=== PATIENT | female | born 1955 | race Caucasian/White ===

== ENCOUNTER 2017-01-10 22:44 | Observation (INO) ==
[2017-01-10 23:23] LABS: Basophils % 0.3 %; Eosinophils # 0.1 K/mcL (0.0-0.6); Eosinophils % 0.8 %; Hematocrit 40.5 % (35.3-44.9); Hemoglobin 13.1 g/dL (11.5-15.4); Immature Granulocytes % 0.2 % (0-4); Lymphocytes # 1.7 K/mcL (0.6-4.6); Lymphocytes % 18.9 %; Mean Corpuscular HGB Conc 32.3 g/dL (31.6-35.5); Mean Corpuscular Hemoglobin 29.4 pg (28.0-33.3); Mean Corpuscular Volume 90.8 fL (83.0-100.0); Mean Platelet Volume 9.2 fL (9.4-12.4); Monocytes # 0.6 K/mcL (0.0-1.3); Neutrophils # 6.7 K/mcL (1.6-8.9); Platelet Count 225 K/mcL (140-400); Red Blood Count 4.46 M/mcL (3.82-4.97); Red Cell Distribution Width 13.2 % (11.5-14.5); Segmented Neutrophils % 73.8 %
[2017-01-10 23:27] LABS: Bilirubin,Urine Small (Negative); Blood,Urine Negative (Negative); Clarity,Urine Clear (Clear); Color,Urine Dark Yellow (Yellow); Glucose,Urine (UA) Normal (Normal); Ketones,Urine Negative (Negative); Leukocyte Esterase,Urine Negative (Negative); Nitrite,Urine Negative (Negative); PH,Urine 6.5 pH Units (5.0-8.0); Protein,Urine 30 mg/dL (Neg-Trace); Specific Gravity,Urine > 1.030 (1.010-1.025); Urobilinogen,Urine Normal (Normal)
[2017-01-10 23:29] LABS: INR 1.2; Prothrombin Time 12.5 Seconds (9.4-12.1)
[2017-01-10 23:29] LABS: Bacteria,Urine None Seen per hpf (None-Few); Hyaline Casts,Urine None Seen per lpf (None-Few); RBC,Urine 0-3 per hpf (0-3); Squamous Epithelial Cell,Urine Many per lpf (None-Few)
[2017-01-10 23:31] LABS: Activated Partial Thrombo Time 51.1 Seconds (26.0-36.0)
[2017-01-10 23:39] LABS: Alanine Aminotransferase 11 Units/L (0-55); Albumin 3.5 g/dL (3.5-5.0); Alkaline Phosphatase 119 Units/L (38-126); Amylase 32 Units/L (25-125); Aspartate Amino Transferase 11 Units/L (5-34); BUN/Creatinine Ratio 13 (6-26); Bilirubin,Direct 0.2 mg/dL (0.0-0.5); Bilirubin,Indirect 0.2 mg/dL (0.0-1.2); Bilirubin,Total 0.4 mg/dL (0.2-1.2); Blood Urea Nitrogen 11 mg/dL (7-20); Calcium 8.8 mg/dL (8.6-10.8); Carbon Dioxide 23 mEq/L (19-29); Chloride 108 mEq/L (98-109); Globulin 3.4 g/dL (2.4-3.5); Glucose 103 mg/dL (70-99); Lipase 15 Units/L (8-78); Osmolality,Calculated 292 (280-300); Potassium 4.3 mEq/L (3.5-4.5); Sodium 141 mEq/L (136-145); Total Protein 6.9 g/dL (6.0-8.3); eGFR For African Americans > 60 (> 60); eGFR For Non-African Americans > 60 (> 60)
--- NOTE | 2017-01-10 23:46 | Emergency Department Note ---
Disposition Clinical Impression: Kidney stone, Common bile duct dilatation Disposition: Admitted As Inpatient Condition: Good [facility] Care Provider[facility] - Forms: Work/School Release, ED Satisfaction Letter Time of Disposition: 02:00 Abdominal Pain HPI - General Chief Complaint: ED Abdominal Pain Stated Complaint: abd pain Time Seen by Provider: 01/10/17 22:46 Source: patient, family, EMS Mode of arrival: ambulatory Limitations: no limitations Nursing Notes Reviewed: Yes Vital Signs Reviewed: Yes - History of Present Illness HPI Narrative: 62 year old female presnts to the eD via EMS from the [place] and states that she has increased abdominal pain in the RUQ and LUQ, she no longer has a galbladder or appendix and states that she has had increased nausea without vomitting or fevers. PAtient states that this is a first time feeling. she denies any other cardiac history. Patient denies any fevers, chest pain, or shortness of breath. Patients states that her abdominal pain is described as sharp and tender to palpations. She states that she has a history of pancreatic cysts but has had them for years and has not had any bleeding episodes in the past. Pain Scale: 9 - Related Data Allergies Allergy/AdvReac Type Severity Reaction Status Date / Time doxycycline Allergy Vomiting Verified 10/07/15 19:35 Penicillins Allergy Vomiting Verified 10/07/15 19:35 Constitutional: Denies: fever, chills, weakness, weight change Eyes: Denies: eye pain, eye discharge, vision change ENT ED: Denies: ear pain, throat pain, dental pain, hearing loss, epistaxis, congestion, dysphagia Cardiovascular: Denies: chest pain, palpitations, dyspnea on exertion, edema, syncope Respiratory: Denies: cough, dyspnea, wheezes, hemoptysis, stridor Gastrointestinal: Reports: abdominal pain, nausea. Denies: vomiting, diarrhea, constipation, hematemesis, melena, hematochezia Genitourinary: Denies: dysuria, frequency, hematuria, discharge Musculoskeletal: Denies: back pain, neck pain, arthralgia, myalgia Integumentary: Denies: rash, abrasion, lesions Neurological: Denies: headache, weakness, numbness, paresthesias, confusion, abnormal gait, vertigo Psychiatric: Denies: anxiety, depression, suicidal thoughts, homicidal thoughts , auditory hallucinations, visual hallucinations Endocrine: Denies: fatigue Hematological/Lymphatic: Denies: easy bleeding, easy bruising Allergic/Immunologic: Denies: facial swelling, urticaria Abdominal Pain PMH - Past Medical History Medical history: Reports: atrial fibrillation, hypertension Female Surgical History: Reports: herniorrhaphy, hysterectomy, knee replacement , other Psychiatric history: Reports: depression - Social History Smoking status: Never smoker Alcohol use: Reports: none Drug use: Reports: none Physical Exam - General Limitations: no limitations General appearance: alert, in no apparent distress - Head Head exam: atraumatic, normocephalic, normal inspection - Eye Eye exam: Present: normal appearance, PERRL, EOMI - Expanded Eye Exam Pupils: Left: reactive - ENT ENT exam: normal exam, normal oropharynx, mucous membranes moist - Expanded ENT Exam External ear exam: Present: normal external inspection Mouth exam: Present: normal external inspection Teeth exam: Present: normal inspection Throat exam: Present: normal inspection - Neck Neck exam: Present: normal inspection, full ROM, trachea midline - Chest Chest inspection: Present: normal inspection, symmetric chest wall rise - Respiratory Respiratory exam: Present: normal lung sounds bilaterally - Cardiovascular Cardiovascular exam: Present: regular rate, normal rhythm, normal heart sounds - Abdominal Exam Abdominal exam: Present: soft, tenderness. Absent: Non-Tender, distention, guarding, rebound, rigidity Abdominal tenderness: Present: RUQ, moderate - Extremities Exam Extremities exam: Present: normal inspection, full ROM. Absent: tenderness, pedal edema - Expanded Upper Extremity Exam Shoulder exam: Present: normal inspection, full ROM Arm exam: Present: normal inspection, full ROM Elbow exam: Present: normal inspection, full ROM Forearm/Wrist exam: Present: normal inspection, full ROM Hand exam: Present: normal inspection, full ROM Vascular exam: Normal: capillary refill, radial pulse - Expanded Lower Extremity Exam Hip/Pelvis exam: Present: normal inspection, full ROM Upper leg exam: Present: normal inspection, full ROM Knee exam: Present: normal inspection, full ROM Lower leg exam: Present: normal inspection, full ROM Ankle exam: Present: normal inspection, full ROM Foot/toe exam: Present: normal inspection, full ROM Neurovascular/Tendon exam: Absent: motor deficit, sensory deficit, tendon deficit - Back Exam Back exam: Present: normal inspection, full ROM. Absent: tenderness - Neurological Exam Neurological exam: Present: alert, oriented X3 - Expanded Neurological Exam Patient oriented to: Present: person, place, time Coma Scale Eye Opening: Spontaneous Coma Scale Motor Response: Obeys Commands Coma Scale Verbal Response: Oriented Coma Scale Total: 15 - Psychiatric Psychiatric exam: Present: normal affect, normal mood - Skin Skin exam: Present: warm, dry, intact, normal color Course Course Narrative: we will do an abdominal pain workup and mrphine/zofran for symptomatic relief with CT scan. Vital Signs Temperature 100.9 F H 01/10/17 22:47 Pulse Rate 57 01/10/17 22:47 Respiratory Rate 18 01/10/17 22:47 Blood Pressure 148/115 01/10/17 22:47 O2 Sat by Pulse Oximetry 95 01/10/17 22:47 Temperature 100.9 F H 01/10/17 22:47 Pulse Rate 87 01/11/17 00:08 Respiratory Rate 18 01/11/17 00:08 Blood Pressure 138/63 01/11/17 00:08 O2 Sat by Pulse Oximetry 94 01/11/17 00:08 Oxygen Delivery Oxygen Delivery Room Air Abdominal Pain - Lab Data Result diagrams: 01/10/17 23:17 01/10/17 23:17 Lab Results 01/10/17 01/10/17 01/10/17 Range/Units 23:00 23:17 23:17 WBC 9.1 (4.3-11.1) K/mcL RBC 4.46 (3.82-4.97) M/mcL Hgb 13.1 (11.5-15.4) g/dL Hct 40.5 (35.3-44.9) % MCV 90.8 (83.0-100.0) fL MCH 29.4 (28.0-33.3) pg MCHC 32.3 (31.6-35.5) g/dL RDW 13.2 (11.5-14.5) % Plt Count 225 (140-400) K/mcL MPV 9.2 L (9.4-12.4) fL Immature Gran % 0.2 (0-4) % Seg Neutrophils % 73.8 % Lymphocytes % 18.9 % Monocytes % 6.0 % Eosinophils % 0.8 % Basophils % 0.3 % Neutrophils # 6.7 (1.6-8.9) K/mcL Lymphocytes # 1.7 (0.6-4.6) K/mcL Monocytes # 0.6 (0.0-1.3) K/mcL Eosinophils # 0.1 (0.0-0.6) K/mcL Basophils # 0.0 (0.0-0.2) K/mcL PT 12.5 H (9.4-12.1) Seconds INR 1.2 APTT 51.1 H (26.0-36.0) Seconds Sodium (136-145) mEq/L Potassium (3.5-4.5) mEq/L Chloride (98-109) mEq/L Carbon Dioxide (19-29) mEq/L BUN (7-20) mg/dL Creatinine (0.57-1.11) mg/dL Est GFR ( Amer) (> 60) Est GFR (Non-Af Amer) (> 60) BUN/Creatinine Ratio (6-26) Glucose (70-99) mg/dL Calculated Osmolality (280-300) Lactic Acid (0.5-2.2) mmol/L Calcium (8.6-10.8) mg/dL Total Bilirubin (0.2-1.2) mg/dL Direct Bilirubin (0.0-0.5) mg/dL Indirect Bilirubin (0.0-1.2) mg/dL AST (5-34) Units/L ALT (0-55) Units/L Alkaline Phosphatase (38-126) Units/L Troponin I (0-0.03) ng/mL Serum Total Protein (6.0-8.3) g/dL Albumin (3.5-5.0) g/dL Globulin (2.4-3.5) g/dL Albumin/Globulin Ratio (1.1-2.2) Amylase (25-125) Units/L Lipase (8-78) Units/L Urine Color Dark Yellow (Yellow) Urine Clarity Clear (Clear) Urine pH 6.5 (5.0-8.0) pH Units Ur Specific Bates > 1.030 H (1.010-1.025) Urine Protein 30 H (Neg-Trace) mg/dL Urine Glucose (UA) Normal (Normal) mg/dL Urine Ketones Negative (Negative) mg/dL Urine Blood Negative (Negative) Urine Nitrite Negative (Negative) Urine Bilirubin Small H (Negative) Urine Urobilinogen Normal (Normal) mg/dL Ur Leukocyte Esterase Negative (Negative) Urine Microscopic RBC 0-3 (0-3) per hpf Urine Microscopic WBC 3-5 H (0-3) per hpf Ur Squamous Epith Cells Many H (None-Few) per lpf Urine Bacteria None Seen (None-Few) per hpf Hyaline Casts None Seen (None-Few) per lpf Ur Culture Indicated? NO (NO) 01/10/17 01/10/17 01/10/17 Range/Units 23:17 23:17 23:17 WBC (4.3-11.1) K/mcL RBC (3.82-4.97) M/mcL Hgb (11.5-15.4) g/dL Hct (35.3-44.9) % MCV (83.0-100.0) fL MCH (28.0-33.3) pg MCHC (31.6-35.5) g/dL RDW (11.5-14.5) % Plt Count (140-400) K/mcL MPV (9.4-12.4) fL Immature Gran % (0-4) % Seg Neutrophils % % Lymphocytes % % Monocytes % % Eosinophils % % Basophils % % Neutrophils # (1.6-8.9) K/mcL Lymphocytes # (0.6-4.6) K/mcL Monocytes # (0.0-1.3) K/mcL Eosinophils # (0.0-0.6) K/mcL Basophils # (0.0-0.2) K/mcL PT (9.4-12.1) Seconds INR APTT (26.0-36.0) Seconds Sodium 141 (136-145) mEq/L Potassium 4.3 (3.5-4.5) mEq/L Chloride 108 (98-109) mEq/L Carbon Dioxide 23 (19-29) mEq/L BUN 11 (7-20) mg/dL Creatinine 0.85 (0.57-1.11) mg/dL Est GFR ( Amer) > 60 (> 60) Est GFR (Non-Af Amer) > 60 (> 60) BUN/Creatinine Ratio 13 (6-26) Glucose 103 H (70-99) mg/dL Calculated Osmolality 292 (280-300) Lactic Acid 1.0 (0.5-2.2) mmol/L Calcium 8.8 (8.6-10.8) mg/dL Total Bilirubin 0.4 (0.2-1.2) mg/dL Direct Bilirubin 0.2 (0.0-0.5) mg/dL Indirect Bilirubin 0.2 (0.0-1.2) mg/dL AST 11 (5-34) Units/L ALT 11 (0-55) Units/L Alkaline Phosphatase 119 (38-126) Units/L Troponin I 0.00 (0-0.03) ng/mL Serum Total Protein 6.9 (6.0-8.3) g/dL Albumin 3.5 (3.5-5.0) g/dL Globulin 3.4 (2.4-3.5) g/dL Albumin/Globulin Ratio 1.0 L (1.1-2.2) Amylase 32 (25-125) Units/L Lipase 15 (8-78) Units/L Urine Color (Yellow) Urine Clarity (Clear) Urine pH (5.0-8.0) pH Units Ur Specific Bates (1.010-1.025) Urine Protein (Neg-Trace) mg/dL Urine Glucose (UA) (Normal) mg/dL Urine Ketones (Negative) mg/dL Urine Blood (Negative) Urine Nitrite (Negative) Urine Bilirubin (Negative) Urine Urobilinogen (Normal) mg/dL Ur Leukocyte Esterase (Negative) Urine Microscopic RBC (0-3) per hpf Urine Microscopic WBC (0-3) per hpf Ur Squamous Epith Cells (None-Few) per lpf Urine Bacteria (None-Few) per hpf Hyaline Casts (None-Few) per lpf Ur Culture Indicated? (NO) - EKG Data EKG attestation: Yes I reviewed and interpreted this EKG. EKG results narrative: NSR with rate of 75. frequent PVCs. NO STEMI. normla intervals. no old ekg. 4181
[2017-01-10] MEDS ORDERED: *HR* Morphine 2 MG/ML SYRINGE IVP ONE (23:49)
[2017-01-10] MEDS ORDERED: Ondansetron 4 MG/2 ML VIAL IVP ONE (23:49)
[2017-01-11] MEDS ORDERED: Ondansetron 4 MG/2 ML VIAL IVP ONE (01:04)
[2017-01-11] MEDS ORDERED: *HR* Morphine 2 MG/ML SYRINGE IVP ONE (01:04)
[2017-01-11] MEDS ORDERED: Naloxone 0.4 MG/ML INJ IVP PRN ×2 (02:39→20:41)
[2017-01-11] MEDS ORDERED: Ondansetron 4 MG/2 ML VIAL IVP PRN ×2 (02:39→20:41)
[2017-01-11] MEDS ORDERED: Acetaminophen 325 MG TABLET PO PRN ×2 (02:39→20:41)
--- NOTE | 2017-01-11 02:49 | Internal Med History&Physical ---
<Ashkan Alvarez - Last Filed: 01/11/17 03:53> Date of Encounter: 01/11/17 Time of Encounter: 02:48 Assessment and Plan (1) Kidney stone Current visit: Yes Status: Acute presented with cc of LLQ pain with nausea reported right groin pain hx of kidney stones CT abdomen pelvis shows 6mm right ureteral calculi at R. UPJ with minimal r. hydronephrosis Temperature of 100.9 (reports temperature of 100.8 at home) UA negative for infection denies hematuria, dysuria plan: nausea, pain control IVF urology consult, if patient cannot pass stone may need invasive intervention. (2) Pancreatic cyst Current visit: Yes Status: Chronic Ct abdomen pelvis reports pancreatic cyst that has been stable since 2009 patient had recent EUS done at [facility] and mentioned possibility of biospy of cyst. Denies weight loss denies hx of cancer in family Bilirubin WNL s/p cholecystectomy and CT abdomen pelvis also reports dialation of hepatic and pancreatic bile duct. plan: as cyst morphology is stable with no evidence of mass will continue to monitor will request record of EUS at [facility]. (3) Atrial fibrillation Current visit: Yes Status: Acute hx of afib rate controlled EKG shows afib with no st changes plan: continue eliquis and metoprolol Qualifiers: Atrial fibrillation type: chronic Qualified Code(s): I48.2 - Chronic atrial fibrillation (4) Depression Current visit: Yes Status: Acute hx of depression controlled continue home medication Qualifiers: Depression Type: unspecified Qualified Code(s): F32.9 - Major depressive disorder, single episode, unspecified (5) Hypertension Current visit: Yes Status: Acute hx of HTN controlled plan: continue home lisinopril Qualifiers: Hypertension type: essential hypertension Qualified Code(s): I10 - Essential (primary) hypertension (6) DVT prophylaxis Current visit: Yes Status: Acute on eliquis for afib Internal Medicine - H&P: HPI Chief complaint: abdominal pain Admitted [facility] Plans for Post Hospital Care: Home History of present illness: Ms. Dowling is a 62 year old female presents with RLQ pain which started yesterday morning . Patient had eaten cold cereal for breakfast and after a couple hours started having colicky "strangulating" pain localized to RLQ radiating to LLQ associated with nausea. Patient has not eaten since yeterday morning but denies food making her symptoms worse. She also reported right groin pain and right anterior thigh numbness which has now resolved. Denies exacerbating and relieving factors. Denies vomiting, diarrhea, melena, hematochezia, sick contacts, travel. Reproted a temperature of 100.8 at home. S/ p cholecystectomy. Reports previous hx of kidney stones but states this feels different. Denies dysuria, hematuria, frequency and urgency. Denies chills, sob , chest pain, palpitations, rash, open wounds or sores. Last BM was formed and was yesterday morning before her symptoms started. Last colonoscopy was 2012 at [facility] and she reports findings of multiple polyps and was susspsoe to follow up in one year for a repeat but she never did. Denies weight loss. Denies any hx of cancer in family. Furthermore, 3 weeks ago patient had MRI and CT scan at [place] for evaluation of nerve impingement and states "they found a spot on the pancreas". She had EUS at [facility] which found pancreatic cysts and mentions they had plans of biopsying the cysts. According to Ct scan taken at [place] today the cyst have been stable since 2009. Past Med Surg Social Fam HX - Past Medical History Medical history: atrial fibrillation, hypertension Psychiatric history: depression - Social History Smoking Status: Never smoker Smokeless Tobacco Status: No Alcohol use: none Drug use: none Internal Medicine - H&P: Meds Apixaban [Eliquis] 5 mg PO BID 01/11/17 [History] BuPROPion XL (24 HR) [Wellbutrin XL] 450 mg PO DAILY 01/11/17 [History] Calcium Carbonate [Calcium] 500 mg PO BID 01/11/17 [History] Cefdinir [Omnicef] 300 mg PO BID 01/11/17 [History] Escitalopram Oxalate 20 mg PO DAILY 01/11/17 [History] Lisinopril [Zestril] 20 mg PO DAILY 01/11/17 [History] Metoprolol XL (24 HR) Succ [Toprol XL] 12.5 mg PO BID 01/11/17 [History] Morphine Immed Rel [Morphine Sulfate] 30 mg PO QID PRN 01/11/17 [History] Morphine Sulfate [Morphine Sulfate ER] 90 mg PO HS 01/11/17 [History] Multivitamin [Multivitamins] 1 tab PO DAILY 01/11/17 [History] Sennosides/Docusate Sodium [Stool Softener Tablet] 2 - 4 each PO DAILY PRN 01/11 [History] traZODone [TraZODone] 100 mg PO HS 01/11/17 [History] 3 Allergy/AdvReac Type Severity Reaction Status Date / Time doxycycline Allergy Vomiting Verified 10/07/15 19:35 Penicillins Allergy Vomiting Verified 10/07/15 19:35 All Systems PM: A 10-system review of systems was performed and is negative for pertinent findings except as documented above in the HPI. Review of systems: Constitutional: reports fevers, denies chills HEENT: Denies headache, vision changes, neck pain, sore throat, rhinorrhea Heart: Denies chest pain palpitations Lungs: Denies shortness of breath cough Abdomen: reprots abdominal pain, nausea. Denies diarrhea, melena, hematochezia Back: Denies back pain Kidney: Denies dysuria, hematuria Skin: warm and dry Extremities: reports LE swelling Neuro: Denies numbness, and tingling - Constitutional Vitals: Temp Pulse Resp BP Pulse Ox 100.9 F H 87 18 138/63 94 01/10/17 22:47 01/11/17 00:08 01/11/17 00:08 01/11/17 00:08 01/11/17 00:08 - Other Additional findings: General: Pleasant without distress HEENT: Head atraumatic, normocephalic, EOMI, PERRLA, neck nontender to palpation , absent lymphadenopathy, Moist Mucous Membranes, Heart: irregularly irregular rhythm Lungs: Clear to auscultation bilaterally Abdomen: Soft tenderness to palpation of LUQ and LLQ, + BS, absent guarding, absent organomegaly, absent rigidity Skin: warm and dry Extremities: 1+ pedal edema Neuro: Cranial nerves II through XII intact, UE and LE sensation equal bilaterally, UE and LE strength 5/5, alert oriented 3, Vascular: Pedal and radial pulses 2 out of 4 Internal Med - H&P Results - Labs CBC & Chem 7: 01/10/17 23:17 01/10/17 23:17 - Impressions ITS Impressions Abdomen/Pelvis CT 01/11/17 23:40 IMPRESSION: 1. Right ureteral calculus at the right ureteropelvic junction measuring just over 6 mm, but with only minimal right-sided hydronephrosis. 2. Right-sided nephrolithiasis. 3. Intra and extrahepatic biliary dilation status post cholecystectomy, with the common duct measuring up to 1.4 cm, which is increased when compared to the previous exam. This can be a normal finding after gallbladder removal, but correlate with any clinical or laboratory evidence of biliary obstruction. D/ / Jalen Whipple MD / Jalen Whipple MD Interpreting Provider: Jalen Whipple MD <Robert Arteaga - Last Filed: 01/11/17 05:26> Date of Encounter: 01/11/17 Internal Medicine - H&P: HPI History of present illness: Ms. Dowling is a 62 year old female All Systems PM: A 10-system review of systems was performed and is negative for pertinent findings except as documented above in the HPI. - Constitutional Vitals: Temp Pulse Resp BP Pulse Ox 100.0 F H 87 18 131/48 95 01/11/17 03:20 01/11/17 00:08 01/11/17 03:20 01/11/17 03:20 01/11/17 03:20 Internal Med - H&P Results - Labs CBC & Chem 7: 01/10/17 23:17 01/10/17 23:17 - Impressions ITS Impressions Abdomen/Pelvis CT 01/11/17 23:40 IMPRESSION: 1. Right ureteral calculus at the right ureteropelvic junction measuring just over 6 mm, but with only minimal right-sided hydronephrosis. 2. Right-sided nephrolithiasis. 3. Intra and extrahepatic biliary dilation status post cholecystectomy, with the common duct measuring up to 1.4 cm, which is increased when compared to the previous exam. This can be a normal finding after gallbladder removal, but correlate with any clinical or laboratory evidence of biliary obstruction. D/ / Jalen Whipple MD / Jalen Whipple MD Interpreting Provider: Jalen Whipple MD - Attending Attestation I examined this patient and my medical decision-making was reviewed with the Resident Physician, Dr. Ashkan Alvarez. I agree with the documented findings, disposition and treatment plan as described except to the extent set forth below. I have independently obtained history and examined the patient and my findings are summarized below: Patient presents with right lower quadrant pain radiating to the right groin. She denies urinary symptoms. On exam she is in no acute distress; heart exam reveals irregularly irregular S1 -S2, abdomen is tender to palpation to the right lower quadrant. Urinalysis shows few wbc's but no leukocytes or nitrate. Assessment Imaging studies: CT scan reviewed by myself shows a 6 mm stone at the right UPJ. Assessment: Right ureteral calculus with UPJ obstruction and possible UTI given ureteral stone, right lower quadrant tenderness and fever. Plan: Medical expulsion therapy with IV fluids, Flomax, IV Dilaudid and Zofran. Levaquin for possible UTI.
[2017-01-11] MEDS: *HR* Morphine 2 MG/ML SYRINGE IVP PRN ×3 (03:49→13:22)
[2017-01-11] MEDS ORDERED: 0.9 % Sodium Chloride 1,000 ML IVC SCH ×2 (04:00→05:24)
[2017-01-11] MEDS: *HR* HYDROcodone/Acet 5/325 mg TABLET PO PRN ×2 (05:16→11:12)
--- NOTE | 2017-01-11 06:14 | Urology - Consult Note ---
Date of Encounter: 01/11/17 Time of Encounter: 06:13 - Assessment and Plan (1) Ureteral stone with hydronephrosis Current Visit: Yes Status: Acute Assessment and plan: Patient has a proximal ureteral stone which is likely the cause of her significant flank discomfort. Although her labs or urine are not concerning for infection her fevers may indicate underlying infection. I do not feel it is safe to attempt an in situ ureteroscopic stone extraction. We'll plan for cystoscopy and ureteral stent placement today. She will require a staged stone extraction or lithotripsy as an outpatient. We discussed the risks of the procedure which includes injury to her urinary tract, stricture, perforation, worsening infection. Urology CN:HPI Consult date: 01/11/17 Reason for consult Urology: Hydronephrosis History of present illness: pt admitted overnight with a 6 mm proximal stone and hydronephrosis. fever near 101. severe flank pain. Admitted to the hospitalist service. Past Med Surg Social Fam HX - Past Medical History Medical history: atrial fibrillation, hypertension Psychiatric history: depression - Past Surgical History Surgical History: appendectomy, cholecystectomy, hysterectomy - Social History Smoking Status: Never smoker Smokeless Tobacco Status: No Alcohol use: none Drug use: none - Family History Mother Living Status: Age at : 70 Hx Family Respiratory Disorders: Yes (copd) Father Living Status: Still Living Hx Family Cardiac Disorders: Yes Hx Family Endocrine Disorder: Yes (diabetes) Sister Hx Family Cardiac Disorders: Yes (afib) Hx Family Cancer: Yes (skin cancer) Medications and Allergies Apixaban [Eliquis] 5 mg PO BID 01/11/17 [History] BuPROPion XL (24 HR) [Wellbutrin XL] 450 mg PO DAILY 01/11/17 [History] Calcium Carbonate [Calcium] 500 mg PO BID 01/11/17 [History] Cefdinir [Omnicef] 300 mg PO BID 01/11/17 [History] Escitalopram Oxalate 20 mg PO DAILY 01/11/17 [History] Lisinopril [Zestril] 20 mg PO DAILY 01/11/17 [History] Metoprolol XL (24 HR) Succ [Toprol XL] 12.5 mg PO BID 01/11/17 [History] Morphine Immed Rel [Morphine Sulfate] 30 mg PO QID PRN 01/11/17 [History] Morphine Sulfate [Morphine Sulfate ER] 90 mg PO HS 01/11/17 [History] Multivitamin [Multivitamins] 1 tab PO DAILY 01/11/17 [History] Sennosides/Docusate Sodium [Stool Softener Tablet] 2 - 4 each PO DAILY PRN 01/11 [History] traZODone [TraZODone] 100 mg PO HS 01/11/17 [History] 3 Allergy/AdvReac Type Severity Reaction Status Date / Time doxycycline Allergy Vomiting Verified 10/07/15 19:35 Penicillins Allergy Vomiting Verified 10/07/15 19:35 Review of Systems - Constitutional chills, fever(s), malaise - EENT Nose, mouth and throat: no dizziness - Cardiovascular no chest pain - Respiratory no cough - Gastrointestinal abdominal pain, nausea - Genitourinary Genitourinary: flank pain - Musculoskeletal back pain - Integumentary no erythema - Neurological no confusion - Psychiatric no anxiety - Hematologic/Lymphatic no easy bleeding - Allergic/Immunologic no throat swelling Exam Initial Vital Signs Temp Pulse Resp BP Pulse Ox 100.9 F H 57 18 148/115 95 01/10/17 22:47 01/10/17 22:47 01/10/17 22:47 01/10/17 22:47 01/10/17 22:47 - General physical appearance Present: no distress, moderate pain - Eyes Present: PERRL - ENT Present: normal nares - Neck Present: no masses - Respiratory Present: normal respiratory effort - Cardiovascular Cardiovascular exam IM: RRR - Abdomen Abdomen: Present: soft - Integumentary Present: no rash - Neurologic Present: normal coordination. Absent: disoriented, confused - Additional Findings Right CVA tenderness Urology Results - Labs 01/10/17 23:17 01/10/17 23:17 Abnormal lab results MPV 9.2 fL (9.4-12.4) L 01/10/17 23:17 PT 12.5 Seconds (9.4-12.1) H 01/10/17 23:17 APTT 51.1 Seconds (26.0-36.0) H 01/10/17 23:17 Glucose 103 mg/dL (70-99) H 01/10/17 23:17 Albumin/Globulin Ratio 1.0 (1.1-2.2) L 01/10/17 23:17 Ur Specific [place] > 1.030 (1.010-1.025) H 01/10/17 23:00 Urine Protein 30 mg/dL (Neg-Trace) H 01/10/17 23:00 Urine Bilirubin Small (Negative) H 01/10/17 23:00 Urine Microscopic WBC 3-5 per hpf (0-3) H 01/10/17 23:00 Ur Squamous Epith Cells Many per lpf (None-Few) H 01/10/17 23:00 All other labs normal. Consult Discharge Plan - Plan [facility] [Primary Care Provider[facility] -
[2017-01-11] MEDS ORDERED: Pantoprazole 40 MG VIAL IVP SCH (06:30)
[2017-01-11] MEDS ORDERED: *HR* HYDROmorphone (PF) 1 MG/ML SYRINGE IVP ONE (06:30)
[2017-01-11] MEDS ORDERED: Levofloxacin 750 MG/150 ML 750 MG/150 ML BAG IVPB SCH (09:00)
[2017-01-11] MEDS ORDERED: Lisinopril 20 MG TABLET PO SCH ×2 (09:00)
[2017-01-11] MEDS ORDERED: BuPROPion XL (24 HR) 150 MG TABLET PO SCH (09:00)
[2017-01-11] MEDS ORDERED: APIXABAN 5 MG TABLET PO SCH ×2 (09:00→21:00)
[2017-01-11] MEDS ORDERED: Metoprolol XL (24 HR) Succ 25 MG TAB.ER.24H PO SCH (09:00)
--- NOTE | 2017-01-11 13:58 | Event Note ---
Date of Encounter: 01/11/17 Time of Encounter: 10:15 Patient continues to have right-sided flank pain radiating to the groin. Was evaluated by urology. Plan for cystoscopy and ureteral stent later today. This will be followed by his stage [place] extraction or lithotripsy as outpatient. Continue IV antibiotics. She has not had fever since last night. Monitor vital signs. Pain control. Continue IV hydration.
--- NOTE | 2017-01-11 15:35 | Electrocardiograph Report ---
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
--- NOTE | 2017-01-11 17:00 | Anesthesia Evaluation PreOp ---
Date of Encounter: 01/11/17 Time of Encounter: 16:57 - Past History Planned Operation: Cystoscopy, Right Ureteral Stent Insertion Cardiac History: HTN, Arrhythmia (H/O A-Fib) Pulmonary History: EFRAIN Dx (uses CPAP) POLYSOMNOGRAPHIC TECHNOLOGIST History: Denies Any Significant HX Other Medical History: GERD, Other (depression) Anesthesia History: No Prior Anesthetic Complications, Past Anesthesia Alcohol Use: none Drug use: none Medications and Allergies Apixaban [Eliquis] 5 mg PO BID 01/11/17 [History] BuPROPion XL (24 HR) [Wellbutrin XL] 450 mg PO DAILY 01/11/17 [History] Calcium Carbonate [Calcium] 500 mg PO BID 01/11/17 [History] Calcium Carbonate [Calcium] 500 mg PO BID 01/11/17 [History] Cefdinir [Omnicef] 300 mg PO BID 01/11/17 [History] Cetirizine HCl [Zyrtec] 10 mg PO DAILY 01/11/17 [History] Escitalopram Oxalate 20 mg PO DAILY 01/11/17 [History] Estradiol [Estring] 1 each VG Q90D 01/11/17 [History] Fluticasone Propionate [Allergy Relief] 2 spr NS DAILY 01/11/17 [History] Lisinopril [Zestril] 20 mg PO DAILY 01/11/17 [History] Metoprolol [Lopressor] 12.5 mg PO BID 01/11/17 [History] Montelukast [Singulair] 10 mg PO DAILY 01/11/17 [History] Morphine Immed Rel [Morphine Sulfate] 30 mg PO QID PRN 01/11/17 [History] Morphine Sulfate [Morphine Sulfate ER] 90 mg PO HS 01/11/17 [History] Multivitamin [Multivitamins] 1 tab PO DAILY 01/11/17 [History] Pantoprazole Sodium [Protonix] 20 mg PO BID 01/11/17 [History] traZODone [TraZODone] 100 mg PO HS 01/11/17 [History] 3 Allergy/AdvReac Type Severity Reaction Status Date / Time doxycycline Allergy Vomiting Verified 10/07/15 19:35 Penicillins Allergy Vomiting Verified 10/07/15 19:35 - Meds/Allergy Pre-op Review Medications Reviewed: Yes Allergies Reviewed: Yes Beta Blockers on Current Med List: No Anesthesia Results - Labs 01/10/17 23:17 01/10/17 23:17 - Imaging EKG: report reviewed (01/10/2017 SINUS RHYTHM WITH VENTRICULAR PREMATURE COMPLEXES INTRAVENTRICULAR CONDUCTION DELAY NONSPECIFIC ST & T-WAVE ABNORMALITY ARTIFACT) Anesthesia Exam Vital Signs/O2 Sat, Most Current Temp Pulse Resp BP Pulse Ox 98.5 F 58 16 116/73 97 01/11/17 14:08 01/11/17 14:08 01/11/17 14:08 01/11/17 14:08 01/11/17 14:08 Height: 5'8''/1.73 m Weight: 230 lbs/104.4 kg NPO (# of Hours): 8 Pain Scale: 8 Pain Scale Used: Numeric (1 - 10) - HEENT Pupil (Motor): EOMI Mallampati: II Teeth: Normal Oral Opening: Greater than 3 - POLYSOMNOGRAPHIC TECHNOLOGIST LOC: Oriented POLYSOMNOGRAPHIC TECHNOLOGIST Motor: Normal RUE, Normal LUE, Normal RLE, Normal LLE, Normal Face POLYSOMNOGRAPHIC TECHNOLOGIST Sensory: Normal: RUE, LUE, RLE, LLE, Face - Cardiac Rhythm: Regular Murmur: None - Pulmonary Breath Sounds: bilateral Clear Respiratory Effort: Symmetrical Anesthesia Assess/Plan ASA Score: 3 Modified [place] Scale for Level of Consciousness: Cooperative, oriented, and tranquil Anesthetic Plan: General Monitoring Plan: Standard Monitors Recovery Plan: PACU
[2017-01-11] MEDS ORDERED: Lidocaine -MPF 2% 2 ML VIAL ONE ×3 (17:48→17:59)
[2017-01-11] MEDS ORDERED: Ondansetron 4 MG/2 ML VIAL ONE ×2 (17:48)
[2017-01-11] MEDS ORDERED: Dexamethasone 4 MG/ML VIAL ONE ×2 (17:48)
[2017-01-11] MEDS ORDERED: *HR* Propofol 200 MG/20 ML VIAL IVP ONE (17:49)
[2017-01-11] MEDS ORDERED: *HR* Labetalol 20 MG/4 ML SYRINGE IVP PRN ×2 (17:53→20:41)
--- NOTE | 2017-01-11 18:27 | Operative Note ---
Date of procedure: 01/11/17 Pre-op diagnosis: Right proximal ureteral stone Post-op diagnosis: same Procedure: Cystoscopy. Right retrograde pyelogram. Right ureteral stent placement Anesthesia: GETA Surgeon: Juventino Dunn Estimated blood loss (cc): 0 Specimen: None Condition: stable Disposition: PACU Procedure in Detail: PROCEDURE IN DETAIL: Patient was taken back to the operating room, positioned supine on the operating table. Anesthesia was applied without complication. They were moved into dorsal lithotomy. Careful attention was maintained to cushion all pressure points for patient's safety. They were prepped and draped in sterile fashion. Time-out was performed with the proper patient and procedure. A 21-[place] rigid cystoscope was inserted into the bladder without difficulty. Systematic examination of bladder revealed no abnormalities. The ureteral orifice was cannulated using a 5-[place] ureteral Catheter and a retrograde pyelogram was performed using Isovue. A filling defect was identified which corresponded to the stone in the proximal right ureter. Zip wire was placed through the ureteral catheter. A 4.8 x 26 ureteral stent was placed over the zip wire under fluoroscopy without complication. The bladder was drained.
[2017-01-11] MEDS: *HR* HYDROmorphone (PF) 1 MG/ML SYRINGE IVP PRN ×8 (18:33→19:29)
[2017-01-11] MEDS ORDERED: Ketorolac 30 MG/ML VIAL IVP ONE (19:24)
[2017-01-11] MEDS ORDERED: Acetaminophen IV 1,000 MG/100 ML INFUS..BTL IVPB ONE (19:24)
--- NOTE | 2017-01-11 20:00 | Anesthesia Evaluation Post Op ---
Date of Encounter: 01/11/17 Time of Encounter: 19:59 - Vital Signs Vital Signs: Vital Signs/O2 Sat, Most Current Temp Pulse Resp BP Pulse Ox 98.2 F 71 12 142/80 95 01/11/17 19:28 01/11/17 19:48 01/11/17 19:48 01/11/17 19:48 01/11/17 19:48 - Lungs Lungs: Clear Ascult./Percussion - Airway Airway: Non-obstructed - Cardiovascular Regular Rate - Mental Status Mental Status: Alert & Oriented, Answers Appropriately - Pain Pain Scale: 7 (drifting of to sleep) Pain Scale used: Numeric (1 - 10) - Nausea Vomiting Nausea Vomiting: Not Present - Hydration Hydration: NPO, Able to void - Discharge PostOp Status: Transfer Patient to floor
[2017-01-11] MEDS ORDERED: *HR* Morphine 2 MG/ML SYRINGE IVP PRN (20:41)
[2017-01-11] MEDS ORDERED: ESTRADIOL VG SCH (20:41)
[2017-01-11] MEDS ORDERED: traZODone 50 MG TABLET PO SCH (21:00)
[2017-01-11] MEDS ORDERED: NON-FORMULARY MEDICATION 1 EACH EACH (Calcium Carbonate [Calcium] 500 MG) PO SCH (21:00)
[2017-01-11] MEDS: traZODone 50 MG TABLET PO SCH (21:48)
[2017-01-11] MEDS: *HR* Morphine Sulfate SR (12 HR) 30 MG TABLET.ER PO SCH (21:49)
[2017-01-11] MEDS: APIXABAN 5 MG TABLET PO SCH (21:49)
[2017-01-11] MEDS: *HR* Morphine Immed Rel 30 MG TABLET PO PRN (22:35)
[2017-01-12] MEDS: 0.9 % Sodium Chloride 1,000 ML IVC SCH ×2 (00:16→10:50)
[2017-01-12] MEDS: *HR* HYDROcodone/Acet 5/325 mg TABLET PO PRN ×3 (02:39→22:27)
[2017-01-12] MEDS: Pantoprazole 40 MG VIAL IVP SCH (05:45)
[2017-01-12] MEDS: *HR* Morphine Immed Rel 30 MG TABLET PO PRN ×2 (05:48→15:44)
[2017-01-12 06:04] LABS: Basophils % 0.2 %; Hematocrit 39.2 % (35.3-44.9); Hemoglobin 12.4 g/dL (11.5-15.4); Immature Granulocytes % 0.5 % (0-4); Lymphocytes # 0.6 K/mcL (0.6-4.6); Lymphocytes % 9.7 %; Mean Corpuscular HGB Conc 31.6 g/dL (31.6-35.5); Mean Corpuscular Hemoglobin 29.4 pg (28.0-33.3); Mean Corpuscular Volume 92.9 fL (83.0-100.0); Mean Platelet Volume 9.5 fL (9.4-12.4); Monocytes # 0.3 K/mcL (0.0-1.3); Monocytes % 4.3 %; Neutrophils # 4.9 K/mcL (1.6-8.9); Platelet Count 197 K/mcL (140-400); Red Blood Count 4.22 M/mcL (3.82-4.97); Red Cell Distribution Width 13.5 % (11.5-14.5); Segmented Neutrophils % 85.3 %
[2017-01-12 06:22] LABS: BUN/Creatinine Ratio 14 (6-26); Blood Urea Nitrogen 11 mg/dL (7-20); Calcium 8.4 mg/dL (8.6-10.8); Carbon Dioxide 24 mEq/L (19-29); Chloride 110 mEq/L (98-109); Glucose 107 mg/dL (70-99); Osmolality,Calculated 290 (280-300); Potassium 4.6 mEq/L (3.5-4.5); Sodium 140 mEq/L (136-145); eGFR For African Americans > 60 (> 60); eGFR For Non-African Americans > 60 (> 60)
[2017-01-12] MEDS: BuPROPion XL (24 HR) 150 MG TABLET PO SCH (07:42)
[2017-01-12] MEDS: Lisinopril 20 MG TABLET PO SCH (07:43)
[2017-01-12] MEDS: Loratadine 10 MG TABLET PO SCH (07:43)
[2017-01-12] MEDS: Multivit/Ca/Min/Fe/FA 1 TAB TABLET PO SCH (07:43)
[2017-01-12] MEDS: APIXABAN 5 MG TABLET PO SCH ×2 (07:44→20:28)
[2017-01-12] MEDS: Levofloxacin 750 MG/150 ML 750 MG/150 ML BAG IVPB SCH (07:44)
[2017-01-12] MEDS: Fluticasone Propionate Nasal 50 MCG/SPRAY BOTTLE NS SCH (07:45)
--- NOTE | 2017-01-12 08:14 | Urology Progress Note ---
Date of Encounter: 01/12/17 Time of Encounter: 08:09 - Assessment and Plan (1) Ureteral stone with hydronephrosis Current Visit: Yes Status: Resolved Assessment and plan: stent placed yesterday. surprisingly the patient still having significant discomfort. she describes only a small improvement. This may be secondary to history of chronic pain and narcotic pain medication use. No further urologic intervention at this time. She will require a outpatient ureteroscopic stone extraction in the near future. Okay for discharge per urology standpoint. If her pain remained severe and she is unable to be discharged because of this issue, I will consider a stone extraction on Saturday or Saturday although this is a somewhat early frame after stent placement. Gross hematuria is normal with the stent in place especially with her anticoagulation. If she begins to have opaque bloody urine with clots will need to back off of anticoagulation. I will continue follow patient while in the hospital Progress Note Subjective: still having pain Objective Initial Vital Signs Temp Pulse Resp BP Pulse Ox 100.9 F H 57 18 148/115 95 01/10/17 22:47 01/10/17 22:47 01/10/17 22:47 01/10/17 22:47 01/10/17 22:47 - General physical appearance Present: well developed, no distress - Labs 01/12/17 05:35 01/12/17 05:35 Diabetes panel 01/12/17 Range/Units 05:35 Sodium 140 (136-145) mEq/L Potassium 4.6 H (3.5-4.5) mEq/L Chloride 110 H (98-109) mEq/L Carbon Dioxide 24 (19-29) mEq/L BUN 11 (7-20) mg/dL Creatinine 0.79 (0.57-1.11) mg/dL Glucose 107 H (70-99) mg/dL Calcium 8.4 L (8.6-10.8) mg/dL Calcium panel 01/12/17 Range/Units 05:35 Calcium 8.4 L (8.6-10.8) mg/dL Pituitary panel 01/12/17 Range/Units 05:35 Sodium 140 (136-145) mEq/L Potassium 4.6 H (3.5-4.5) mEq/L Chloride 110 H (98-109) mEq/L Carbon Dioxide 24 (19-29) mEq/L BUN 11 (7-20) mg/dL Creatinine 0.79 (0.57-1.11) mg/dL Glucose 107 H (70-99) mg/dL Calcium 8.4 L (8.6-10.8) mg/dL Adrenal panel 01/12/17 Range/Units 05:35 Sodium 140 (136-145) mEq/L Potassium 4.6 H (3.5-4.5) mEq/L Chloride 110 H (98-109) mEq/L Carbon Dioxide 24 (19-29) mEq/L BUN 11 (7-20) mg/dL Creatinine 0.79 (0.57-1.11) mg/dL Glucose 107 H (70-99) mg/dL Calcium 8.4 L (8.6-10.8) mg/dL - VTE Documentation of Mechanical Device: Intermittent pneumatic compression device Consult Discharge Plan - Plan [facility]errals: [facility] [Primary Care Provider[facility] -
[2017-01-12] MEDS: *HR* HYDROmorphone (PF) 1 MG/ML SYRINGE IVP PRN ×3 (10:27→20:39)
--- NOTE | 2017-01-12 11:19 | Internal Med Progress Note ---
Date of Encounter: 01/12/17 Time of Encounter: 09:50 - Assessment and plan (1) Ureteral stone with hydronephrosis Current Visit: Yes Status: Acute Assessment and plan: Patient with right renal colic. Due to right ureteric stone. Underwent cystoscopy and stent placement yesterday. Remains in pain. We will just pain medication regimen. Continue antibiotics. Has been cleared for discharge from a urology standpoint but will need to control pain better before discharge. Monitor vital signs closely. Moderate risk for complications. (2) Atrial fibrillation Current Visit: Yes Status: Chronic Assessment and plan: Rate controlled. On Eliquis for anticoagulation Qualifiers: Atrial fibrillation type: chronic Qualified Code(s): I48.2 - Chronic atrial fibrillation (3) Depression Current Visit: Yes Status: Chronic Assessment and plan: Continue home medications including Wellbutrin and trazodone Qualifiers: Depression Type: unspecified Qualified Code(s): F32.9 - Major depressive disorder, single episode, unspecified (4) DVT prophylaxis Current Visit: Yes Status: Acute Assessment and plan: On Eliquis (5) Hypertension Current Visit: Yes Status: Chronic Assessment and plan: Blood pressure is well controlled Qualifiers: Hypertension type: essential hypertension Qualified Code(s): I10 - Essential (primary) hypertension - Subjective Interval history: Patient continues to have right flank pain radiating down to the groin. It is slightly improved compared to yesterday but still significant. Patient underwent cystoscopy with ureteral stent placement yesterday. Tolerated procedure well. Has not had any further episodes of fever since yesterday. - Constitutional Vitals: Temp Pulse Resp BP Pulse Ox 98.7 F 58 16 126/78 95 01/12/17 11:00 01/12/17 11:00 01/12/17 11:00 01/12/17 11:00 01/12/17 11:00 General appearance: Present: cooperative, mild distress, A&O X 3, answers questions appropriately - Neck Neck exam general surgery: Present: supple, trachea midline. Absent: lymphadenopathy - Respiratory Respiratory exam: Present: CTAB. Absent: accessory muscle use, rales, rhonchi, wheezes - Cardiovascular Cardiovascular exam: Present: RRR, +S1, +S2. Absent: diastolic murmur, gallop, rubs, systolic murmur - GI/Abdominal GI/Abdominal exam: Present: normal bowel sounds, soft, no peritoneal signs. Absent: distended, tenderness - Extremities Exam Extremities exam: Present: warm, radial pulses palpable and symmetrical. Absent : calf tenderness, cyanotic, pedal edema - Neurological Exam Neurological exam: Present: alert, oriented X3, no focal deficits. Absent: facial droop, speech deficit Internal Medicine: Result - Labs CBC & Chem 7: 01/12/17 05:35 01/12/17 05:35 Labs: Short CBC 01/12/17 Range/Units 05:35 WBC 5.8 (4.3-11.1) K/mcL Hgb 12.4 (11.5-15.4) g/dL Hct 39.2 (35.3-44.9) % Plt Count 197 (140-400) K/mcL Neutrophils # 4.9 (1.6-8.9) K/mcL BMP 01/12/17 05:35 Sodium 140 Potassium 4.6 H Chloride 110 H Carbon Dioxide 24 BUN 11 Creatinine 0.79 Glucose 107 H Calcium 8.4 L - ABG Interpretation ABG results: PT/INR, D-dimer PT 12.5 Seconds (9.4-12.1) H 01/10/17 23:17 - VTE Documentation of Mechanical Device: Intermittent pneumatic compression device Consult Discharge Plan - Plan [facility]errals: [facility] [Primary Care Provider] -
[2017-01-12] MEDS: traZODone 50 MG TABLET PO SCH (20:27)
[2017-01-12] MEDS: *HR* Morphine Sulfate SR (12 HR) 30 MG TABLET.ER PO SCH (20:28)
[2017-01-13] MEDS: *HR* HYDROmorphone (PF) 1 MG/ML SYRINGE IVP PRN ×2 (01:22→05:31)
[2017-01-13] MEDS: *HR* HYDROcodone/Acet 5/325 mg TABLET PO PRN ×2 (03:41→08:49)
[2017-01-13] MEDS: Pantoprazole 40 MG VIAL IVP SCH (05:26)
[2017-01-13 07:14] VITALS: BP 114/78
--- NOTE | 2017-01-13 08:17 | Event Note ---
Date of Encounter: 01/13/17 Time of Encounter: 08:14 based on nurse notes it appears patient is still having pain. as mentioned yesterday may be related to chronic pain issues and ultimately difficult to resolve. still ok with discharge at any point from urology standpoint as vitals are stable. if discharged, my office will call her to schedule outpatient surgery. I will be rounding later in the afternoon to evaluate patient if she is still admitted
[2017-01-13] MEDS: Multivit/Ca/Min/Fe/FA 1 TAB TABLET PO SCH (08:49)
[2017-01-13] MEDS: Lisinopril 20 MG TABLET PO SCH (08:49)
[2017-01-13] MEDS: Loratadine 10 MG TABLET PO SCH (08:49)
[2017-01-13] MEDS: BuPROPion XL (24 HR) 150 MG TABLET PO SCH (08:49)
[2017-01-13] MEDS: Fluticasone Propionate Nasal 50 MCG/SPRAY BOTTLE NS SCH (08:50)
[2017-01-13] MEDS: APIXABAN 5 MG TABLET PO SCH (08:50)
[2017-01-13] MEDS: Levofloxacin 750 MG/150 ML 750 MG/150 ML BAG IVPB SCH (08:50)
[2017-01-13] MEDS ORDERED: Ibuprofen 800 MG TABLET PO PRN (09:12)
--- NOTE | 2017-01-13 11:04 | Discharge Summary ---
Date of Encounter: 01/13/17 Time of Encounter: 08:50 - Discharge Diagnosis (1) Ureteral stone with hydronephrosis Priority: Primary Status: Acute (2) Atrial fibrillation Priority: Secondary Status: Chronic Qualifiers: Atrial fibrillation type: chronic Qualified Code(s): I48.2 - Chronic atrial fibrillation (3) Depression Priority: Secondary Status: Chronic Qualifiers: Depression Type: unspecified Qualified Code(s): F32.9 - Major depressive disorder, single episode, unspecified (4) DVT prophylaxis Priority: Secondary Status: Acute (5) Hypertension Priority: Secondary Status: Chronic Qualifiers: Hypertension type: essential hypertension Qualified Code(s): I10 - Essential (primary) hypertension - Discharge Medications Prescriptions: Ibuprofen [Motrin] 800 mg PO Q8HR PRN #30 tab PRN Reason: Pain levoFLOXacin [Levofloxacin] 500 mg PO DAILY #7 tablet Phenazopyridine [Pyridium] 100 mg PO TID PRN #30 tab PRN Reason: Bladder spasms Home Medications: Apixaban [Eliquis] 5 mg PO BID 01/11/17 [History] BuPROPion XL (24 HR) [Wellbutrin Xl] 450 mg PO DAILY 01/11/17 [History] Calcium Carbonate [Calcium] 500 mg PO BID 01/11/17 [History] Calcium Carbonate [Calcium] 500 mg PO BID 01/11/17 [History] Cetirizine HCl [Zyrtec] 10 mg PO DAILY 01/11/17 [History] Escitalopram Oxalate 20 mg PO DAILY 01/11/17 [History] Estradiol [Estring] 1 each VG Q90D 01/11/17 [History] Fluticasone Propionate [Allergy Relief] 2 spr NS DAILY 01/11/17 [History] Lisinopril [Zestril] 20 mg PO DAILY 01/11/17 [History] Metoprolol [Lopressor] 12.5 mg PO BID 01/11/17 [History] Montelukast [Singulair] 10 mg PO DAILY 01/11/17 [History] Morphine Immed Rel [Morphine Sulfate] 30 mg PO QID PRN 01/11/17 [History] Morphine Sulfate [Morphine Sulfate ER] 90 mg PO HS 01/11/17 [History] Multivitamin [Multivitamins] 1 tab PO DAILY 01/11/17 [History] Pantoprazole Sodium [Protonix] 20 mg PO BID 01/11/17 [History] traZODone [TraZODone] 100 mg PO HS 01/11/17 [History] Ibuprofen [Motrin] 800 mg PO Q8HR PRN #30 tab 01/13/17 [Rx] Phenazopyridine [Pyridium] 100 mg PO TID PRN #30 tab 01/13/17 [Rx] levoFLOXacin [Levofloxacin] 500 mg PO DAILY #7 tablet 01/13/17 [Rx] Allergies/Adverse Reactions: 3 Allergy/AdvReac Type Severity Reaction Status Date / Time doxycycline Allergy Vomiting Verified 10/07/15 19:35 Penicillins Allergy Vomiting Verified 10/07/15 19:35 Date of admission: 01/11/17 02:19 Primary care physician: PCP ROSLYN Consults: Urology Discharging clinician: Jaden Hemphill Anticipated date of discharge: 01/13/17 - Patient Status Disposition: Home, Self-Care Condition: Good Functional capacity at discharge: independent ambulation Overall status at discharge: patient is progressing back to baseline - Discharge Instructions Follow Up With: ROSLYN,PCP [Primary Care Provider] - (in 1-2 weeks) Juventino Dunn MD [Partnered Physician] - (in 1-2 weeks) - Diet and Activity Activity: increase activity as tolerated Diet: low fat, low cholesterol, low salt diet Hospital course: Ms. Dowling is a 62 year old female patient with history of chronic pain syndrome, Hypertension, atrial fibrillation, was hospitalized here with right lower quadrant pain radiating down to the groin. She was diagnosed with a right ureteral stone per CT scan. She was started on treatment with IV fluids, IV narcotic made medications and then reevaluated by urology. Per their recommendations, patient underwent cystoscopy with ureteral stent placement. She was monitored after the procedure and continued to have pain in the right lower quadrant although it has improved compared to initial presentation. Urology has cleared her for discharge. She will be discharged today and will follow up with urology as outpatient for removal of stent and retrieval of stone. On initial presentation she also had fever and was started on antibiotics. She will complete antibiotic course at home. - Time Spent with Patient Total time spent providing and/or coordinating discharge services: Greater than 30 minutes (35 min) - Constitutional Vitals: Temp Pulse Resp BP Pulse Ox 98.5 F 64 16 114/78 99 08/27/17 06:44 01/13/17 06:44 01/13/17 06:44 01/13/17 06:44 01/13/17 06:44 General appearance: Present: cooperative, mild distress, A&O X 3, answers questions appropriately - Respiratory Respiratory exam: Present: CTAB. Absent: accessory muscle use, rales, rhonchi, wheezes - Cardiovascular Cardiovascular exam: Present: RRR, +S1, +S2. Absent: diastolic murmur, gallop, rubs, systolic murmur - GI/Abdominal GI/Abdominal exam: Present: normal bowel sounds, soft, no peritoneal signs. Absent: distended, tenderness - Extremities Exam Extremities exam: Present: warm, radial pulses palpable and symmetrical. Absent : calf tenderness, cyanotic, pedal edema - Neurological Exam Neurological exam: Present: CN II-XII intact, oriented X3, no focal deficits. Absent: pronater drift, facial droop, speech deficit - VTE Documentation of Mechanical Device: Intermittent pneumatic compression device
== END 2017-01-13 14:30 | disposition home or self-care (01) ==
LOC: 3NENU 22:44 → EMEROO 22:44 → 3NENU 01-11 02:49
PROVIDERS: ADMIT Internal Medicine Hematology & Oncology; ATTEND Internal Medicine